=== PATIENT | male | born 1965 | race Two or more races ===

== ENCOUNTER 2018-10-26 11:34 | Inpatient (IN) | payer OTHER ==
[2018-10-26 16:11] VITALS: BMI 27.3
--- NOTE | 2018-10-26 16:37 | HP ---
COWS - Scale Resting Pulse: 1= [place] 81-100 (HR: 90) Sweatin=Flushed/Facial Moisture Restless Observation: 0= Sits Still Pupil Size: 1= Pupils >than Normal (Pupils = 3 mm) Bone or Joint Aches: 1= Mild Discomfort Runny Nose/ Eye Tearin= Runny Nose/Eyes GI Upset > 30mins: 2= Nausea/Diarrhea Tremor Observation: 2= Slight Tremor Visible Yawning Observation: 0= None Anxiety or Irritability: 1=Feels Anxious/Irritable Goose Flesh Skin: 0=Smooth Skin COWS Score: 12 CIWA Score Nausea/Vomitin (Abdominal cramping) Muscle Tremors: 3 Anxiety: 1-Mildly Anxious Agitation: 1-Slight > Activity Paroxysmal Sweats: 3 (Increased facial moisture) Orientation: 0-Oriented Tacttile Disturbances: 0-None Auditory Disturbances: 0-None Visual Disturbances: 0-None Headache: 2-Mild CIWA-Ar Total Score: 13 - Admission Criteria OASAS Guidelines: Admission for Medically Managed Detox: Requires at least one of the followin. CIWA greater than 12 2. Seizures within the past 24 hours 3. Delirium tremens within the past 24 hours 4. Hallucinations within the past 24 hours 5. Acute intervention needed for co occurring medical disorder 6. Acute intervention needed for co occurring psychiatric disorder 7. Severe withdrawal that cannot be handled at a lower level of care (continued vomiting, continued diarrhea, abnormal vital signs) requiring intravenous medication and/or fluids 8. Patient presents the following: CIWA greater than 12 Admission Criteria Met: Admission criteria met Admission ROS [facility] Chief Complaint: I'm having Alcohol and heroin withdrawal. Allergies/Adverse Reactions: Allergies Allergy/AdvReac Type Severity Reaction Status Date / Time shellfish derived Allergy Intermediate Hives Verified 10/26/18 15:58 History of Present Illness: 52 yom presents to [facility] with alcohol and heroin withdrawal and requesting detox. Alcohol use began at age 7. States drinks 1-2 pints w/ beer x 3 months. Marijuana use began at age 7. Cocaine use rare. Just used yesterday to "wake up from heroin" Heroin use began at age 16. Current IVDU and nasal. States 10 bags/day. Denies sharing needles or works. MMTP program years ago. Recent prescriptions for Subosone. U-tox negative for Suboxone. Patient states last used Suboxone 2 weeks ago and does not want to be put back on it. Nicotine use began at age 7. 2PPD x years. Hx chewing tobaccoa over 10 years ago. Blackouts x 2 years ago. Denies seizures or overdoses. Patient does not have a Narcan Kit @ home. PMHX: Asthma (last wheeze 1 month ago), sinus pro MHHx: Anxiety. Denies depression. Denies thoughts of harming self or others. Patient Name: Luis Angel Villegas Date: 1965 Address: [address] [place] [address] Sex: Male Rx Written Rx Dispensed Drug Quantity Days Supply Prescriber Name 10/08/2018 10/08/2018 buprenorphine-naloxone 8-2 mg sl film 90 30 ShakiraLior alberto MD 09/10/2018 09/10/2018 buprenorphine-naloxone 8-2 mg sl film 90 30 ShakiraLior alberto MD 08/11/2018 08/11/2018 buprenorphine-naloxone 8-2 mg sl film 90 30 ShakiraLior alberto MD 07/10/2018 07/10/2018 buprenorphine-naloxone 8-2 mg sl film 90 30 ShakiraLior MD 06/12/2018 06/12/2018 suboxone 8 mg-2 mg sl film 90 30 ShakiraLior MD 05/13/2018 05/13/2018 suboxone 8 mg-2 mg sl film 90 30 ShakiraLior alberto MD 04/10/2018 04/10/2018 suboxone 8 mg-2 mg sl film 90 30 ShakiraLior alberto MD 03/11/2018 03/11/2018 suboxone 8 mg-2 mg sl film 90 30 ShakiraLior alberto MD Patient Name: Gen Villegas Date: 1965 Address: [address] [place] [address] Sex: Male Rx Written Rx Dispensed Drug Quantity Days Supply Prescriber Name 02/11/2018 02/11/2018 suboxone 8 mg-2 mg sl film 90 30 Lior Rosenberg MD 01/13/2018 01/13/2018 suboxone 8 mg-2 mg sl film 90 30 Lior Rosenberg MD 12/05/2017 12/05/2017 suboxone 8 mg-2 mg sl film 90 30 Lior Rosenberg MD Search Terms: Gen Villegas, 1965 Search Date: 10/26/2018 04:53:54 PM States Searched: [place], [place], [place], [place], [place], [place], [place] The Drug Utilization Report below displays the controlled substance prescriptions, if any, that were dispensed in the indicated state(s). The information displayed on this report is compiled from requests submitted to other states' PMPs, and accurately reflects the information as returned by them. Blank haile indicate data not provided by other state. This report was requested by: Elida Saravia | Reference #: [id number] Exam Limitations: No Limitations - Ebola screening Have you traveled outside of the country in the last 21 days: No Have you had contact with anyone from an Ebola affected area: No Have you been sick,other than usual withdrawal symptoms: No (Denies recent exposure to measles) Do you have a fever: No - Review of Systems Constitutional: Chills, Changes in sleep (Difficulty falling asleep) EENT: reports: Blurred Vision, Nose Congestion Respiratory: reports: Shortness of Breath (Used inhaler today) Cardiac: reports: No Symptoms Reported GI: reports: Diarrhea (soft, brown x 2 today), Indigestion (Heart burn), Abdominal cramping : reports: No Symptoms Reported Musculoskeletal: reports: Back Pain (Chronic achy low back pain, increased w/ withdrawal. "7". Impoves w/ drugs) Integumentary: reports: No Symptoms Reported Neuro: reports: Headache (Mild/moderate throbing H/A on sides of head) Endocrine: reports: Increased Thirst Hematology: reports: No Symptoms Reported Psychiatric: reports: Judgement Intact, Orientated x3, Agitated, Anxious Patient History - PPD History Previous Implant?: Yes Documented Results: Negative w/o proof Implanted On Prior [facility] Admission?: No PPD to be Administered?: Yes - Smoking Cessation Smoking history: Current every day smoker Have you smoked in the past 12 months: Yes Aproximately how many cigarettes per day: 40 Hx Chewing Tobacco Use: Yes (Stopped years ago) Initiated information on smoking cessation: Yes 'Breaking Loose' booklet given: 10/26/18 - Substance & Tx. History Hx Alcohol Use: Yes Hx Substance Use: Yes Substance Use Type: Alcohol, Cocaine, Heroin, Marijuana, Opiates Hx Substance Use Treatment: Yes (detox, rehab, Past MMTP and Suboxone, ) - Substances abused Heroin Substance route: Injection Frequency: Daily Amount used: 10 bags Age of first use: 16 Date of last use: 10/26/18 (@ 5 am) Alcohol Substance route: Oral Frequency: Daily Amount used: one pint of voldka and a six pack of beer Age of first use: 7 Date of last use: 10/26/18 (8 am) Marijuana/Hashish Substance route: Smoking Frequency: Daily Amount used: 10 bags Age of first use: 7 Date of last use: 10/25/18 Admission Physical Exam [facility] - Vital Signs Vital Signs: Vital Signs - 24 hr 10/26/18 10/26/18 15:53 16:31 Temperature 98.8 F 98.8 F Pulse Rate 79 79 Respiratory 18 18 Rate Blood Pressure 151/72 151/72 - Physical General Appearance: Yes: Mild Distress, Tremorous (Mild tremors of hands w/ arms extended), Sweating (Increased facial moisture), Anxious HEENTM: Yes: EOMI (Slight jerking of eyes on (R) lateral gaze), Hearing grossly Normal, Normocephalic, Normal Voice, DARIEL (Pupils = 3 mm), Pharynx Normal, Nasal Congestion, Rhinorrhea Respiratory: Yes: Lungs Clear, Normal Breath Sounds, No Respiratory Distress, Other (O2 Sat = 99) Neck: Yes: No masses,lesions,Nodules, Supple Breast: Yes: Breast Exam Deferred Cardiology: Yes: Regular Rhythm, Regular Rate (HR: 90), S1, S2 Abdominal: Yes: Non Tender, Soft, Increased Bowel Sounds, Protuberent ( Increased abdominal adiposity) Genitourinary: Yes: Within Normal Limits Back: Yes: Normal Inspection Musculoskeletal: Yes: full range of Motion, Gait Steady Extremities: Yes: Normal Capillary Refill, Normal Inspection, Normal Range of Motion, Non-Tender, Tremors (Mild tremors of hands w/ arms extended) Neurological: Yes: salesperson recreational vehicles II-XII NML intact (Slight jerking of eyes on (R) lateral gaze), Fully Oriented, Alert, Motor Strength 5/5, Normal Mood/Affect, Normal Response Integumentary: Yes: Normal Color, Warm, Rash (papular lessipns inner thighs.), Track Urrutia (Few track urrutia (R) antecubital area, w/o increased warmth or tenderness.) Lymphatic: Yes: Within Normal Limits - Diagnostic (1) Alcohol dependence with uncomplicated withdrawal Current Visit: Yes Status: Acute (2) Opioid dependence with withdrawal Current Visit: Yes Status: Acute (3) Cocaine abuse, uncomplicated Current Visit: Yes Status: Chronic (4) Cannabis dependence, uncomplicated Current Visit: Yes Status: Chronic (5) Nicotine dependence, uncomplicated Current Visit: Yes Status: Chronic Qualifiers: Nicotine product type: cigarettes Qualified Code(s): F17.210 - Nicotine dependence, cigarettes, uncomplicated (6) Folliculitis Current Visit: Yes Status: Chronic (7) Heartburn Current Visit: Yes Status: Chronic (8) History of asthma Current Visit: Yes Status: Chronic Cleared for Admission S - Detox or Rehab [facility] Level of Care: Medically Managed Detox Regimen/Protocol: Methadone/Librium Claeared for Rehab Admission: No Breathalyzer - Breathalyzer Breathalyzer: 0 Urine Drug Screen - Test Device Lot number: [id number] Expiration date: 07/09/20 - Control Is test valid?: Yes - Results Drug screen NEGATIVE: No Urine drug screen results: THC-Marijuana, DELIA-Cocaine, FEN-Fentanyl, MOP-Opiates Inpatient Rehab Admission - Rehab Decision to Admit Inpatient rehab admission?: No
[2018-10-26] MEDS ORDERED: NICOTINE POLACRILEX 4 MG GUM BUC PRN (17:16)
[2018-10-26] MEDS ORDERED: METHOCARBAMOL 500 MG TABLET PO PRN (17:16)
[2018-10-26] MEDS ORDERED: MAG HYDROX/AL HYDROX/SIMETH 30 ML UNIT-DOSE CUP PO PRN (17:16)
[2018-10-26] MEDS ORDERED: ACETAMINOPHEN 325 MG TABLET (FP) PO PRN ×2 (17:16)
[2018-10-26] MEDS ORDERED: ONDANSETRON *ODT* 4 MG TABLET SL PRN (17:16)
[2018-10-26] MEDS ORDERED: MENTHOL/PHENOL 1 EACH UD MM PRN (17:16)
[2018-10-26] MEDS ORDERED: MAGNESIUM HYDROX 2400MG/30ML ORAL SUSPENSION 30 ML CUP PO PRN (17:16)
[2018-10-26] MEDS ORDERED: MAGNESIUM CITRATE 300 ML BOTTLE PO PRN (17:16)
[2018-10-26] MEDS ORDERED: BISMUTH SUBSALICYLATE 524 MG/30 ML UD PO PRN (17:16)
[2018-10-26] MEDS ORDERED: IBUPROFEN 400 MG TABLET (FP) PO PRN (17:16)
[2018-10-26] MEDS ORDERED: guaiFENesin 200 MG/10 ML 10 ML UNIT-DOSE CUPS PO PRN (17:16)
[2018-10-26] MEDS ORDERED: ALBUTEROL SO4 0.083% IH SOL 2.5 MG/3 ML VIAL.NEB. NEB PRN (17:20)
[2018-10-26] MEDS ORDERED: chlordiazePOXIDE HCL 10 MG CAPSULE PO PRN (17:25)
[2018-10-26] MEDS ORDERED: chlordiazePOXIDE HCL 25 MG CAPSULE PO ONE (18:00)
[2018-10-26] MEDS: cloNIDine HCL 0.1 MG TABLET PO PRN (18:22)
[2018-10-26] MEDS: chlordiazePOXIDE HCL 25 MG CAPSULE PO SCH (22:21)
[2018-10-26] MEDS: THIAMINE HCL 100 MG TABLET (FP) PO SCH (22:22)
[2018-10-26] MEDS: PSEUDOEPHEDRINE HCL 30 MG TABLET PO SCH (22:22)
[2018-10-26] MEDS: MELATONIN 5 MG TABLETS PO PRN (22:23)
[2018-10-26] MEDS: BACITRACIN 15 GM TUBE TOPICAL OINTMENT TP SCH (22:24)
[2018-10-26] MEDS ORDERED: METHADONE HCL 10 MG TABLET (FOR DETOX USE ONLY) PO ONE (23:00)
[2018-10-27] MEDS: chlordiazePOXIDE HCL 25 MG CAPSULE PO SCH ×2 (05:58→12:40)
[2018-10-27] MEDS: cloNIDine HCL 0.1 MG TABLET PO PRN (06:02)
[2018-10-27] MEDS ORDERED: METHADONE HCL 10 MG TABLET (FOR DETOX USE ONLY) PO ONE (10:00)
[2018-10-27 10:47] LABS: ALBUMIN 3.2 g/dl (3.4-5.0); BILIRUBIN,TOTAL 0.3 mg/dL (0.2-1); BLOOD UREA NITROGEN 14.7 mg/dL (7-18); CREATININE 1.1 mg/dL (0.55-1.3); POTASSIUM 4.2 mmol/L (3.5-5.1); TOT PROT 6.7 g/dl (6.4-8.2)
[2018-10-27 10:48] LABS: HEMATOCRIT 38.4 % (35.4-49); HEMOGLOBIN 12.6 GM/dL (11.7-16.9); MCH 28.7 pg (25.7-33.7); MEAN CELL VOLUME 87.1 fl (80-96); MEAN PLT VOLUME 7.9 fl (7.5-11.1); PLATELET COUNT 271 K/MM3 (134-434); RDW 15.3 % (11.9-15.9); WHITE BLOOD COUNT 5.6 K/mm3 (4.0-10.0)
[2018-10-27] MEDS: PSEUDOEPHEDRINE HCL 30 MG TABLET PO SCH ×2 (10:50→22:03)
[2018-10-27] MEDS: PANTOPRAZOLE 20 MG TABLET (FP) PO SCH (10:51)
[2018-10-27] MEDS: BACITRACIN 15 GM TUBE TOPICAL OINTMENT TP SCH ×2 (10:51→22:02)
[2018-10-27] MEDS: PRENATAL VITAMINS W/ FOLIC ACID TABLET (FP) PO SCH (10:51)
[2018-10-27] MEDS: NICOTINE 21 MG/24 HOURS TOPICAL PATCH TD SCH (10:51)
--- NOTE | 2018-10-27 11:56 | PN ---
[facility] CIWA - CIWA Score Nausea/Vomitin-No Nausea/No Vomiting Muscle Tremors: 3 Anxiety: 3 Agitation: 3 Paroxysmal Sweats: 2 Orientation: 0-Oriented Tacttile Disturbances: 0-None Auditory Disturbances: 0-None Visual Disturbances: 0-None Headache: 0-None Present CIWA-Ar Total Score: 11 BHS COWS - Scale Resting Pulse: 1= [place] 81-100 Sweatin=Flushed/Facial Moisture Restless Observation: 1= Difficult to Sit Still Pupil Size: 0= Normal to Room Light Bone or Joint Aches: 2= Severe Diffuse Aches Runny Nose/ Eye Tearin= Nasal Congestion GI Upset > 30mins: 0= None Tremor Observation of Outstretched Hands: 2= Slight Tremor Visible Yawning Observation: 2= >3x During Session Anxiety or Irritability: 2=Irritable/Anxious Goose Flesh Skin: 0=Smooth Skin COWS Score: 13 S Progress Note (SOAP) Subjective: body aches sweats chills interrupted sleep tired nausea Objective: 10/27/18 11:56 Vital Signs Temperature 97.9 F 10/27/18 09:55 Pulse Rate 83 10/27/18 09:55 Respiratory Rate 18 10/27/18 09:55 Blood Pressure 125/91 10/27/18 09:55 O2 Sat by Pulse Oximetry (%) Laboratory Tests 10/27/18 10/27/18 10/27/18 07:20 07:20 07:20 WBC 5.6 RBC 4.40 Hgb 12.6 Hct 38.4 MCV 87.1 MCH 28.7 MCHC 33.0 RDW 15.3 Plt Count 271 MPV 7.9 Sodium 138 Potassium 4.2 Chloride 102 Carbon Dioxide 29 Anion Gap 6 L BUN 14.7 Creatinine 1.1 Est GFR (CKD-EPI)AfAm 87.74 Est GFR (CKD-EPI)NonAf 75.70 Random Glucose 119 H Calcium 9.0 Total Bilirubin 0.3 AST 14 L ALT 20 Alkaline Phosphatase 97 Total Protein 6.7 Albumin 3.2 L RPR Titer Nonreactive aaox3 ambulating no acute distress Assessment: 10/27/18 11:57 withdrawal sx Plan: continue detox increase fluids naun santana prn
--- NOTE | 2018-10-27 12:22 | EKG ---
Test Reason : Blood Pressure : / mmHG Vent. Rate : 060 BPM Atrial Rate : 060 BPM P-R Int : 160 ms QRS Dur : 096 ms QT Int : 384 ms P-R-T Axes : 063 048 035 degrees QTc Int : 384 ms NORMAL SINUS RHYTHM NORMAL ECG NO PREVIOUS ECGS AVAILABLE Confirmed by MD STAR, SHER ([id number]) on 10/27/2018 12:22:18 PM Referred By: Confirmed By:SHER GRAVES MD
[2018-10-27 19:09] LABS: URINE APPEARANCE TURBID; URINE BILIRUBIN NEGATIVE (NEGATIVE); URINE COLOR YELLOW; URINE GLUCOSE (UA) NEGATIVE (NEGATIVE); URINE KETONE Trace (NEGATIVE); URINE LEUK ESTERASE NEGATIVE (NEGATIVE); URINE NITRITE NEGATIVE (NEGATIVE); URINE PROTEIN NEGATIVE (NEGATIVE); URINE UROBILINOGEN 0.2 mg/dL (0.2-1.0)
[2018-10-27] MEDS: IBUPROFEN 600 MG TABLET (FP) PO PRN (19:50)
[2018-10-27] MEDS: chlordiazePOXIDE 5 MG CAPSULE PO SCH (22:02)
[2018-10-27] MEDS: THIAMINE HCL 100 MG TABLET (FP) PO SCH (22:03)
[2018-10-28] MEDS: chlordiazePOXIDE 5 MG CAPSULE PO SCH ×2 (06:01→14:58)
[2018-10-28] MEDS: IBUPROFEN 600 MG TABLET (FP) PO PRN (06:03)
[2018-10-28] MEDS ORDERED: METHADONE HCL 10 MG TABLET (FOR DETOX USE ONLY) PO ONE (10:00)
[2018-10-28] MEDS: NICOTINE 21 MG/24 HOURS TOPICAL PATCH TD SCH (10:59)
[2018-10-28] MEDS: PRENATAL VITAMINS W/ FOLIC ACID TABLET (FP) PO SCH (10:59)
[2018-10-28] MEDS: PANTOPRAZOLE 20 MG TABLET (FP) PO SCH (10:59)
[2018-10-28] MEDS: BACITRACIN 15 GM TUBE TOPICAL OINTMENT TP SCH ×2 (11:01→22:14)
[2018-10-28] MEDS: PSEUDOEPHEDRINE HCL 30 MG TABLET PO SCH ×2 (11:01→22:13)
--- NOTE | 2018-10-28 12:28 | PN ---
[facility] CIWA - CIWA Score Nausea/Vomitin-No Nausea/No Vomiting Muscle Tremors: 3 Anxiety: 2 Agitation: 2 Paroxysmal Sweats: 2 Orientation: 0-Oriented Tacttile Disturbances: 0-None Auditory Disturbances: 0-None Visual Disturbances: 0-None Headache: 0-None Present CIWA-Ar Total Score: 9 S COWS - Scale Resting Pulse: 1= [place] 81-100 Sweatin= Chills/Flushing Restless Observation: 1= Difficult to Sit Still Pupil Size: 0= Normal to Room Light Bone or Joint Aches: 1= Mild Discomfort Runny Nose/ Eye Tearin= Nasal Congestion GI Upset > 30mins: 0= None Tremor Observation of Outstretched Hands: 1= Tremor [place], Not Seen Yawning Observation: 0= None Anxiety or Irritability: 2=Irritable/Anxious Goose Flesh Skin: 0=Smooth Skin COWS Score: 8 S Progress Note (SOAP) Subjective: irritable anxiety agitation Objective: 10/28/18 12:24 Vital Signs Temperature 96.8 F L 10/28/18 12:12 Pulse Rate 83 10/28/18 12:12 Respiratory Rate 18 10/28/18 12:12 Blood Pressure 147/80 10/28/18 12:12 O2 Sat by Pulse Oximetry (%) Laboratory Tests 10/26/18 10/27/18 10/27/18 15:45 07:20 07:20 WBC 5.6 RBC 4.40 Hgb 12.6 Hct 38.4 MCV 87.1 MCH 28.7 MCHC 33.0 RDW 15.3 Plt Count 271 MPV 7.9 Sodium 138 Potassium 4.2 Chloride 102 Carbon Dioxide 29 Anion Gap 6 L BUN 14.7 Creatinine 1.1 Est GFR (CKD-EPI)AfAm 87.74 Est GFR (CKD-EPI)NonAf 75.70 Random Glucose 119 H Calcium 9.0 Total Bilirubin 0.3 AST 14 L ALT 20 Alkaline Phosphatase 97 Total Protein 6.7 Albumin 3.2 L Urine Color Yellow Urine Appearance Turbid Urine pH 5.0 Ur Specific [place] 1.027 Urine Protein Negative Urine Glucose (UA) Negative Urine Ketones Trace Urine Blood Negative Urine Nitrite Negative Urine Bilirubin Negative Urine Urobilinogen 0.2 Ur Leukocyte Esterase Negative Urine WBC (Auto) No Result Required. Urine RBC (Auto) No Result Required. Urine Casts (Auto) No Result Required. U Pathogenic Cast Auto No Result Required. U Epithel Cells (Auto) No Result Required. U Sm Round Cell (Auto) No Result Required. Urine Crystals (Auto) No Result Required. Urine Bacteria (Auto) No Result Required. RPR Titer 10/27/18 07:20 WBC RBC Hgb Hct MCV MCH MCHC RDW Plt Count MPV Sodium Potassium Chloride Carbon Dioxide Anion Gap BUN Creatinine Est GFR (CKD-EPI)AfAm Est GFR (CKD-EPI)NonAf Random Glucose Calcium Total Bilirubin AST ALT Alkaline Phosphatase Total Protein Albumin Urine Color Urine Appearance Urine pH Ur Specific [place] Urine Protein Urine Glucose (UA) Urine Ketones Urine Blood Urine Nitrite Urine Bilirubin Urine Urobilinogen Ur Leukocyte Esterase Urine WBC (Auto) Urine RBC (Auto) Urine Casts (Auto) U Pathogenic Cast Auto U Epithel Cells (Auto) U Sm Round Cell (Auto) Urine Crystals (Auto) Urine Bacteria (Auto) RPR Titer Nonreactive aaox3 ambulating no acute distress Assessment: 10/28/18 12:28 withdrawal sx Plan: continue detox increase fluids
[2018-10-28] MEDS ORDERED: chlordiazePOXIDE HCL 10 MG CAPSULE PO PRN (21:00)
[2018-10-28] MEDS: chlordiazePOXIDE HCL 10 MG CAPSULE PO SCH (22:13)
[2018-10-28] MEDS: MELATONIN 5 MG TABLETS PO PRN (22:14)
[2018-10-28] MEDS: cloNIDine HCL 0.1 MG TABLET PO PRN (22:14)
[2018-10-28] MEDS: THIAMINE HCL 100 MG TABLET (FP) PO SCH (22:14)
[2018-10-29] MEDS: chlordiazePOXIDE HCL 10 MG CAPSULE PO SCH ×3 (06:52→22:02)
[2018-10-29] MEDS: IBUPROFEN 600 MG TABLET (FP) PO PRN (07:45)
[2018-10-29] MEDS ORDERED: METHADONE HCL 10 MG TABLET (FOR DETOX USE ONLY) PO ONE (10:00)
[2018-10-29] MEDS: NICOTINE 21 MG/24 HOURS TOPICAL PATCH TD SCH (10:18)
[2018-10-29] MEDS: BACITRACIN 15 GM TUBE TOPICAL OINTMENT TP SCH ×2 (10:18→22:02)
[2018-10-29] MEDS: PSEUDOEPHEDRINE HCL 30 MG TABLET PO SCH ×2 (10:19→22:02)
[2018-10-29] MEDS: PRENATAL VITAMINS W/ FOLIC ACID TABLET (FP) PO SCH (10:19)
[2018-10-29] MEDS: PANTOPRAZOLE 20 MG TABLET (FP) PO SCH (10:19)
--- NOTE | 2018-10-29 12:38 | PN ---
[facility] CIWA - CIWA Score Nausea/Vomitin-No Nausea/No Vomiting Muscle Tremors: 3 Anxiety: 1-Mildly Anxious Agitation: 2 Paroxysmal Sweats: No Perspiration Orientation: 0-Oriented Tacttile Disturbances: 0-None Auditory Disturbances: 0-None Visual Disturbances: 0-None Headache: 0-None Present CIWA-Ar Total Score: 6 BHS COWS - Scale Resting Pulse: 1= [place] 81-100 Sweatin= Chills/Flushing Restless Observation: 0= Sits Still Pupil Size: 0= Normal to Room Light Bone or Joint Aches: 1= Mild Discomfort Runny Nose/ Eye Tearin= Nasal Congestion GI Upset > 30mins: 0= None Tremor Observation of Outstretched Hands: 1= Tremor [place], Not Seen Yawning Observation: 0= None Anxiety or Irritability: 1=Feels Anxious/Irritable Goose Flesh Skin: 0=Smooth Skin COWS Score: 6 [facility] Progress Note (SOAP) Subjective: sweats anxiety Objective: 10/29/18 12:37 Vital Signs Temperature 98.1 F 10/29/18 09:40 Pulse Rate 91 H 10/29/18 09:40 Respiratory Rate 18 10/29/18 09:40 Blood Pressure 146/81 10/29/18 09:40 O2 Sat by Pulse Oximetry (%) aaox3 ambulating no acute distress Assessment: 10/29/18 12:38 mild withdrawal sx Plan: continue detox increase fluids d/c in am
[2018-10-29 21:55] VITALS: TEMP 98.1
[2018-10-29] MEDS: THIAMINE HCL 100 MG TABLET (FP) PO SCH (22:02)
[2018-10-29] MEDS: MELATONIN 5 MG TABLETS PO PRN (22:02)
[2018-10-30] MEDS ORDERED: METHADONE HCL 5 MG TABLET (FOR DETOX USE ONLY) PO ONE (06:00)
[2018-10-30 06:59] VITALS: BP 134/93; PULSE 72
[2018-10-30] MEDS: PSEUDOEPHEDRINE HCL 30 MG TABLET PO SCH (09:00)
[2018-10-30] MEDS: PRENATAL VITAMINS W/ FOLIC ACID TABLET (FP) PO SCH (09:00)
[2018-10-30] MEDS: PANTOPRAZOLE 20 MG TABLET (FP) PO SCH (09:00)
[2018-10-30] MEDS: BACITRACIN 15 GM TUBE TOPICAL OINTMENT TP SCH (09:00)
[2018-10-30] MEDS: NICOTINE 21 MG/24 HOURS TOPICAL PATCH TD SCH (09:00)
--- NOTE | 2018-10-30 09:40 | DS ---
[facility] Detox Discharge Summary Admission Date: 10/26/18 Discharge Date: 10/30/18 - History Present History: Alcohol Dependence, Cannabis Dependence, Cocaine Dependence, Opioid Dependence - Physical Exam Results Vital Signs: Vital Signs Temperature 98.1 F 10/30/18 06:00 Pulse Rate 72 10/30/18 06:00 Respiratory Rate 18 10/30/18 06:00 Blood Pressure 134/93 10/30/18 06:00 O2 Sat by Pulse Oximetry (%) - Treatment Hospital Course: Detox Protocol Followed, Detoxed Safely, Responded well, Discharged Condition Good, Rehab Referral Accepted - Medication Discharge Medications: Ambulatory Orders Albuterol Sulfate Inhaler - [Ventolin Hfa Inhaler -] 1 - 2 inh PO QID 10/26/18 Buprenorphine/Naloxone [Suboxone 8Mg/2Mg Sl Film -] 1 each SL TID 10/26/18 Pseudoephedrine HCl [Sudafed] 30 mg PO DAILY 10/26/18 - Diagnosis (1) Alcohol dependence with uncomplicated withdrawal Current Visit: Yes Status: Chronic (2) Opioid dependence with withdrawal Current Visit: Yes Status: Chronic (3) Cannabis dependence, uncomplicated Current Visit: Yes Status: Chronic (4) Folliculitis Current Visit: Yes Status: Chronic (5) Heartburn Current Visit: Yes Status: Chronic (6) History of asthma Current Visit: Yes Status: Chronic (7) Nicotine dependence, uncomplicated Current Visit: Yes Status: Chronic Qualifiers: Nicotine product type: cigarettes Qualified Code(s): F17.210 - Nicotine dependence, cigarettes, uncomplicated - AMA Did Patient Leave Against Medical Advice: No (pt declined aftercare; going home)
== END 2018-10-30 09:25 | disposition home or self-care (01) | DRG 773 ==
LOC: YASAS 11:34 → Y6N 17:27
PROVIDERS: ADMIT Surgery; ATTEND Surgery
PROC: HZ2ZZZZ Detoxification Services for Substance Abuse Treatment (ICD-10-PCS; principal; 2018-10-26)
DX: F11.23 Opioid dependence with withdrawal (principal); F10.230 Alcohol dependence with withdrawal, uncomplicated; F14.20 Cocaine dependence, uncomplicated; F12.20 Cannabis dependence, uncomplicated; F17.210 Nicotine dependence, cigarettes, uncomplicated; F41.9 Anxiety disorder, unspecified; J45.909 Unspecified asthma, uncomplicated; L73.9 Follicular disorder, unspecified; R12 Heartburn
CPT/HCPCS: 36415; 80053; 81003; 85027; 86593; 93005; 93010; J0735